=== PATIENT | male | born 1975 | race Caucasian/White ===

== ENCOUNTER 2023-06-23 12:18 | Emergency (ER) | payer BC ==
[2023-06-23] MEDS ORDERED: GLUCAGON 1 MG in DEXTROSE 5% 45 ML IV STA (13:10)
[2023-06-23] MEDS ORDERED: LORazepam 2 MG/ML VIAL IVP STA (13:12)
--- NOTE | 2023-06-23 13:15 | ED Physician Documentation ---
History of Present Illness - Stated complaint Stated Complaint: SOA,FB THROAT - Chief complaint Chief Complaint: General - History obtained from History obtained from: Patient - Additonal information Additional information: 47-year-old male presents with foreign body sensation in the Lower esophagus. The patient states he was eating steak yesterday, and felt as though it got stuck when he swallowed. Since then he has had difficulty swallowing and is not able to burp or vomit. He is spitting up his secretions because he cannot swallow well. He denies any shortness of breath when he is laying in particular positions but if he gets up to ambulate he does feel short of breath. He states this has happened before however he was able to clear without intervention. He does report needing to drink a fair amount of water every time he eats to ensure that he swallows well. There is a strong family history of esophageal stricture and others have undergone dilation. Review of Systems Constitutional: reports: Reviewed and negative Cardiac: reports: Reviewed and negative Respiratory: reports: Dyspnea. denies: Cough, Hemoptysis, Wheezing GI: reports: Abdominal Pain, Other (Foreign body in esophagus). denies: Abdominal Swelling, Nausea, Vomiting, Constipation, Diarrhea, Hematemesis : reports: Reviewed and negative Skin: reports: Reviewed and negative Musculoskeletal: reports: Reviewed and negative PD PAST MEDICAL HISTORY - Past Medical History Past Medical History: Yes Cardiovascular: None Respiratory: Asthma Neuro: None Endocrine/Autoimmune: HyPOthyroidism GI: None : Kidney stones HEENT: None Psych: None Musculoskeletal: Chronic back pain Derm: None - Past Surgical History Past Surgical History: Yes Ortho: Spine surgery HEENT: Myringotomy (tubes), Other - Present Medications Home Medications: Ambulatory Orders Medication Instructions Recorded Confirmed Methadone HCl 10 mg PO TID 06/23/23 06/23/23 Testosterone Cypionate 1 ml IM Q10D 06/23/23 06/23/23 [Depo-Testosterone] - Allergies Allergies/Adverse Reactions: Allergies Allergy/AdvReac Type Severity Reaction Status Date / Time No Known Drug Allergies Allergy Verified 06/23/23 12:22 - Social History Does the pt smoke?: No Smoking Status: Never smoker Does the pt drink ETOH?: Yes Does the pt have substance abuse?: Yes Substance Use and Type: Marijuana - Immunizations Immunizations are current?: Yes PD ED PE NORMAL - Vitals Vital signs reviewed: Yes - General General: Alert and oriented X 3, No acute distress, Well developed/nourished - HEENT HEENT: Atraumatic, Moist mucous membranes - Neck Neck: Supple, no meningeal sign, No adenopathy - Cardiac Cardiac: RRR, No murmur, No gallop, No rub - Respiratory Respiratory: No respiratory distress, Clear bilaterally - Abdomen Abdomen: Normal bowel sounds, Soft, Non tender, Non distended Results - Vitals Vitals: Vital Signs - 24 hr 06/23/23 06/23/23 06/23/23 12:24 12:43 15:10 Temperature 36.3 C L Heart Rate 78 80 69 Respiratory 18 20 20 Rate Blood Pressure 149/90 H 129/87 H O2 Saturation 99 98 97 Oxygen O2 Source Room air - Labs Labs: Laboratory Tests 06/23/23 12:35 Sodium 142 Potassium 3.8 Chloride 105 Carbon Dioxide 29 Anion Gap 8.0 BUN 15 Creatinine 1.1 Estimated GFR (MDRD) 72 L Glucose 89 Calcium 9.8 - Rads (name of study) No standard instances Relevant Findings:: Final report received PD Medical Decision Making - ED course Complexity details: reviewed results, re-evaluated patient, considered differential, d/w patient, d/w family ED course: 47-year-old male presents with sudden sensation of an esophageal food bolus. He believes a piece of steak he ate last night got stuck in the lower part of his esophagus. He has not been able to swallow fluids since then, and is spitting up his secretions for the most part, But is in no respiratory distress. We initially got a soft tissue x-ray of the neck and a chest x-ray that did not reveal any foreign bodies and thus I proceeded with a CT chest which showed a 4.2 cm and mid to lower esophageal food bolus. We did try IV glucagon and Ativan without relief in his symptoms. Patient remained stable here but unfortunately we do not have a surgeon to do an endoscopy. I initially called [facility] and spoke with her surgeon but they are short staffed as well and unable to take this patient. I therefore called [facility] and have spoken to their surgeon Dr. Mondragon who has very kindly agreed to come in to see this patient. I have also spoken with the ED physician who is aware the patient will be ED to ED transfer specifically for this procedure. Patients plans to drive him and I do believe he is stable for POV transfer though ambulance transfer was offered. Departure - Departure Disposition: 02 Transfer Acute Care Hosp Clinical Impression: Esophageal obstruction due to food impaction Condition: Good Comments: Please drive directly to [facility] in [place]. The surgeon plans to perform an endoscopy as soon as you get there. Please go directly there, do not eat/drink en route. [address] [place] [address] Forms: PCP List
--- NOTE | 2023-06-23 13:38 | XRAY Report ---
PROCEDURE: Neck Soft Tissue INDICATIONS: foreign body TECHNIQUE: 2 views of the neck were acquired. COMPARISON: Correlation is made with the accompanying chest radiographs FINDINGS: Airway: The airway appears patent. Soft tissues: Prevertebral soft tissues are normal in thickness. The epiglottis and aryepiglottic f olds appear normal. No soft tissue gas. No radiopaque foreign bodies are seen. Bones: No suspicious bony lesions. Visualized cervical spine is normally aligned. IMPRESSION: No radiopaque foreign bodies are seen. Reviewed by: Matt Hamlin MD on 06/23/2023 12:36 PM [facility] Approved by: Matt Hamlin MD on 06/23/2023 12:36 PM [facility] Station ID: [id number]
--- NOTE | 2023-06-23 13:39 | XRAY Report ---
PROCEDURE: Chest 2V INDICATIONS: foreign body distal esophagus suspected TECHNIQUE: 2 views of the chest were acquired. COMPARISON: None. FINDINGS: Surgical changes and devices: None. Lungs and pleura: An incomplete inspiratory result is noted, with low lung volumes and crowding of t he vascular markings. No focal infiltrates are seen. No large pneumothorax or large pleural effusion can be seen.No findings of air trapping are seen. Mediastinum: Mediastinal contours appear normal. Heart size is normal. Bones and chest wall: No suspicious bony lesions. Overlying soft tissues appear unremarkable. IMPRESSION: No acute cardiopulmonary process. No radiopaque foreign bodies are seen. - If there remains strong clinical concern for a radiopaque foreign body, please consider a dedicated chest CT, performed with thick oral contrast consumed immediately prior to scanning. Reviewed by: Matt Hamlin MD on 06/23/2023 12:37 PM [facility] Approved by: Matt Hamlin MD on 06/23/2023 12:37 PM [facility] Station ID: [id number]
[2023-06-23 14:22] LABS: CALCIUM 9.8 mg/dL (8.5-10.3); CREATININE 1.1 mg/dL (0.6-1.3); POTASSIUM 3.8 mmol/L (3.5-4.5)
[2023-06-23] MEDS ORDERED: DIATRIZOATE MEGLU/DIATRIZO SOD 30 ML BOTTLE PO ONE (15:12)
[2023-06-23 15:18] VITALS: O2SAT 97
--- NOTE | 2023-06-23 15:56 | CT Report ---
PROCEDURE: Chest W INDICATIONS: esophageal foreign body (distal) CONTRAST: Omni 300 100ml TECHNIQUE: After the administration of intravenous contrast, a CT scan of the chest was performed. Images were recorded and evaluated at appropriate window settings. Reformats: axial MIP of the chest, coronal and sagittal. For radiation dose reduction, the following was used: automated exposure control, adjustme nt of mA and/or kV according to patient size. COMPARISON: Correlation is made with the accompanying plain films. FINDINGS: Image quality: Excellent. Lungs and pleura: No consolidation. No pleural effusions. No pneumothorax. No suspicious pulmonary n odules which require follow up. Mediastinum: Within the mid to distal esophagus, there is abnormal soft tissue seen, spanning 4.2 cm craniocaudal. No mediastinal gas is seen. Heart size is normal. No pericardial effusion. No large vessel abnormality. No mediastinal adenopathy by size criteria. Chest wall and lower neck: Thyroid is unremarkable. No axillary or supraclavicular adenopathy by size . Bones: No aggressive osseous abnormality. Upper Abdomen: A simple cyst is seen along the anterior aspect of the left kidney. The visualized por tions of the upper abdominal structures are otherwise within normal limits. IMPRESSION: Food bolus seen within the mid to distal esophagus, spanning 4.2 cm craniocaudal. No mediastinal gas is seen. Additional findings: Simple left renal cyst Reviewed by: Matt Hamlin MD on 06/23/2023 2:55 PM [facility] Approved by: Matt Hamlin MD on 06/23/2023 2:55 PM [facility] Station ID: [id number]
[2023-06-23] MEDS ORDERED: iohexoL-300 100 ML VIAL IVP ONE (17:08)
[2023-06-23 17:33] VITALS: BP 135/90
== END 2023-06-23 17:50 | disposition short-term general hospital (02) ==
LOC: ED 12:18
DX: T18.128A Food in esophagus causing other injury, initial encounter (principal); E03.9 Hypothyroidism, unspecified; Z79.899 Other long term (current) drug therapy
CPT/HCPCS: 36415; 70360; 71046; 71260; 80048; 96365; 96366; 96375; 99285; J1610; J2060; Q9967